=== PATIENT | male | born 1950 | race Caucasian/White ===

== ENCOUNTER 2016-09-13 14:04 | Emergency (ER) | payer MEDICARE ==
[~2016-09-13] VITALS: Ht 182.9 cm; Wt 98.0 kg
[~2016-09-13 14:04] MED LIST: ALLO300T2 PO; ARTHTAB5 PO; BENA40TA PO; COLC1TAB7 PO; CORE25TA PO; DAPT500P IV; LORTA5 PO; PANT20 PO; PRAV40TA2 PO; SSD1CRE TOP; TAMS0.4C67 PO; [UNRECOGNIZED DRUG - OTHER] PO
[2016-09-13 14:10] VITALS: BP 148/90; PULSE 80; RESP 20; TEMP 98; O2SAT 95
[2016-09-13] MEDS ORDERED: LIDOCAINE 1%/EPINEPHrine 1:100,000 SOLN 20 ML VIAL INFIL ONE (15:45)
--- NOTE | 2016-09-13 15:48 | PD ---
HPI Chief Complaint: Laceration/Skin Injury Time Seen by Provider: 15:44 Travel History International Travel<30 days: No Contact w/Intl Traveler<30days: No Traveled to known affect area: No History of Present Illness HPI 65-year-old male presents to the emergency department for evaluation of head injury and laceration to his forehead that occurred at 8 AM this morning. He states he tripped and fell over rug and hit his head on the corner of a door. Patient states he cannot have tetanus immunization due to allergy. Patient also complains of some mild neck pain. He states he hit his right knee, but has no pain and can move it. Patient also has abrasion to the right cheek and tenderness over the right orbit. Patient reports history of sepsis has right leg amputation. He also has history hypertension, hyperlipidemia, chronic pain , neuropathy. Patient states he does not take any anticoagulants and has no bleeding disorders. Patient states he falls often due to prosthesis. 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, Severe, 09/13/16) PATIENT STATES HE CANNOT HAVE ANY MEDS WITH HORSE SERUM PROTEINS Reported Meds & Prescriptions Reported Meds & Active Scripts Active Reported Pravastatin 80 Mg Tab 80 Mg PO DAILY Zanaflex (Tizanidine HCl) 4 Mg Cap 4 Mg PO TID [place] (Hydrocodone-Acetaminophen) 10-325 Mg Tab 1 Tab PO Q6H PRN Flomax (Tamsulosin HCl) 0.4 Mg Cap 0.4 Mg PO HS Gabapentin 300 Mg Cap 600 Mg PO TID Protonix (Pantoprazole Sodium) 20 Mg Tab 20 Mg PO DAILY Colchicine 0.6 Mg Cap 0.6 Mg PO DIRECTED Benazepril (Benazepril HCl) 40 Mg Tab 40 Mg PO DAILY Allopurinol 300 Mg Tab 300 Mg PO DAILY Review of Systems Except as stated in HPI: all other systems reviewed are Neg Physical Exam Narrative GENERAL: Well-developed well-nourished male patient, afebrile. SKIN: Warm and dry. Patient has a 3 cm linear laceration to the right forehead. He also has abrasions to the right cheek. HEAD: Normocephalic. EYES: No scleral icterus. No injection or drainage. PERRLA. ENT: Mucosa pink and moist. No erythema or exudates. No uvular edema. No uvular , palatal, or tonsillar deviation. Airway patent. Nasal turbinates appear normal without nasal blood, purulent drainage or septal hematoma. Bilateral tympanic membranes are clear without erythema or perforation. NECK: Supple, trachea midline. No JVD or lymphadenopathy. CARDIOVASCULAR: Regular rate and rhythm without murmurs, gallops, or rubs. RESPIRATORY: Breath sounds equal bilaterally. No accessory muscle use. Lungs sounds are clear to auscultation. GASTROINTESTINAL: Abdomen soft, non-tender, nondistended. MUSCULOSKELETAL: No cyanosis, or edema. No tenderness to palpation over right knee. He has full flexion-extension of the right knee without pain. BACK: No obvious deformity. No CVA tenderness. Patient has mild tenderness over midline cervical spine. Data Data Last Documented VS Vital Signs Date Time Temp Pulse Resp B/P Pulse Ox O2 Delivery O2 Flow Rate FiO2 09/13/16 14:10 98.0 80 20 148/[address] Brain W/O Iv Contrast(Rout) (09/13/16 ) Ct Cerv Spine W/O Contrast (09/13/16 ) Ct Facial Bones W/O Iv Cont (09/13/16 ) Lidocai-Epi 1%-1:100,000 Inj (Xylocaine- (09/13/16 15:45) MDM Medical Decision Making Medical Screen Exam Complete: Yes Emergency Medical Condition: Yes Medical Record Reviewed: Yes Interpretation(s) Last Impressions Head CT 09/13/16 0000 Signed Impressions: Service Date/Time: Tuesday, September 13, 2016 16:13 - CONCLUSION: 1. No acute intracranial abnormalities. Right maxillary sinusitis. Small scalp laceration right frontal region. Jim Fitzpatrick MD Cervical Spine CT 09/13/16 0000 Signed Impressions: Service Date/Time: Tuesday, September 13, 2016 16:13 - CONCLUSION: 1. No acute bony abnormalities. Moderate degenerative change. Jim Fitzpatrick MD CT facial bones - CONCLUSION: 1. Right frontal scalp laceration. No acute fracture. Right maxillary sinusitis. Differential Diagnosis Laceration versus closed head injury versus intercranial normality versus fracture versus contusion versus cervical strain versus fracture Narrative Course 65-year-old male presents to the emergency room after a trip and fall that occurred at 8 AM. Patient gives verbal consent for laceration repair. CT of the brain, cervical spine, facial bones are ordered and pending. CT of the brain shows no acute intracranial abnormalities. CT of the facial bones shows right frontal scalp laceration, no acute fracture. CT of the cervical spine shows no acute bony abnormalities, moderate degenerative change. I discussed the imaging results with the patient. He'll be discharged a prescription for Keflex due to history of infection. He is instructed on proper wound care. Patient is given first dose of Keflex in the emergency department. He is instructed on symptoms of infection he should immediately return for. The patient verbalizes agreement and understanding. Procedures Procedure Narrative LACERATION LOCATION: Right forehead LENGTH: 3 cm NUMBER OF STITCHES/LASHAWN: 7 simple interrupted sutures REPAIR: The area of the laceration was prepped with Betadine and sterilely draped. The laceration was infiltrated with 1% lidocaine with epinephrine. The wound was copiously irrigated and explored without evidence of foreign body, tendon injury or neurovascular injury. The wound was closed using 5-0 prolene. This was a single layer repair. A sterile dressing was applied. The patient was advised to keep the dressing clean and dry. Patient tolerated the procedure well. Diagnosis Primary Impression: Forehead laceration Qualified Code: S01.81XA - Forehead laceration, initial encounter Additional Impressions: Facial contusion Qualified Code: S00.83XA - Facial contusion, initial encounter Cervical strain Qualified Code: S16.1XXA - Cervical strain, initial encounter Closed head injury Qualified Code: S09.90XA - Closed head injury, initial encounter Referrals: Primary Care Physician Patient Instructions: Care For Your Stitches (ED), General Instructions, Laceration (ED) Additional Instructions: Clean laceration twice daily with soap and water and apply [id number] antibiotic ointment. Keep laceration clean and dry. No swimming or hot tubs. Take antibiotic as instructed until gone. Suture removal in 5 days. You may follow up with your primary care physician or return to the emergency department for this. Return to the emergency department for any acute worsening of symptoms. Med/Other Pt SpecificInfo: Prescription(s) given Scripts Cephalexin (Keflex)500 Mg [id number] Mg PO Q8H 7 Days Ref 0 Prov:Preeti Taylor 09/13/16 Disposition: 01 DISCHARGE HOME Preeti Taylor Sep 13, 2016 15:48
[2016-09-13] MEDS ORDERED: PANT20 PO (15:54)
[2016-09-13] MEDS ORDERED: COLC1CAP3 PO (15:54)
[2016-09-13] MEDS ORDERED: GABA300C5 PO (15:54)
[2016-09-13] MEDS ORDERED: TAMS5CAP PO (15:54)
[2016-09-13] MEDS ORDERED: BENA40TA PO (15:54)
[2016-09-13] MEDS ORDERED: ALLO300T2 PO (15:54)
[2016-09-13] MEDS ORDERED: PRAV80TA2 PO (15:54)
[2016-09-13] MEDS ORDERED: HYDR-3366 PO (15:54)
[2016-09-13] MEDS ORDERED: ZANA4CAP PO (15:54)
--- NOTE | 2016-09-13 17:33 | RADRPT ---
EXAM DATE/TIME: 09/13/2016 16:13 [facility] COMPARISON: No previous studies available for comparison. INDICATIONS : Fall today, laceration to forehead. RADIATION DOSE: 35.33 CTDIvol (mGy) MEDICAL HISTORY : Hypertension. melanoma SURGICAL HISTORY : None. ENCOUNTER: Initial ACUITY: 1 day PAIN SCALE: 5/10 LOCATION: Bilateral frontal head TECHNIQUE: Multiple contiguous axial images were obtained of the head. Using automated exposure control and adj ustment of the mA and/or kV according to patient size, radiation dose was kept as low as reasonably a chievable to obtain optimal diagnostic quality images. FINDINGS: No acute intracranial hemorrhage, mass or shift. No hydrocephalus. No abnormal extra-axial fluid. Rig ht frontal scalp laceration. There is opacification of the right maxillary sinus and mucosal thickening left maxillary sinus. CONCLUSION: 1. No acute intracranial abnormalities. Right maxillary sinusitis. Small scalp laceration right front al region. Jim Fitzpatrick MD on September 13, 2016 at 17:30 Board Certified Radiologist. This report was verified electronically.
--- NOTE | 2016-09-13 17:36 | RADRPT ---
EXAM DATE/TIME: 09/13/2016 16:13 [facility] COMPARISON: No previous studies available for comparison. INDICATIONS : Fall today, laceration to forehead. RADIATION DOSE: 19.44 CTDIvol (mGy) MEDICAL HISTORY : Hypertension. melanoma SURGICAL HISTORY : None. ENCOUNTER: Initial ACUITY: 1 day PAIN SCALE: 0/10 LOCATION: Bilateral neck TECHNIQUE: Volumetric scanning of the cervical spine was performed. Multiplanar reconstructions in the sagittal, coronal and oblique axial planes were performed. Using automated exposure control and adjustment o f the mA and/or kV according to patient size, radiation dose was kept as low as reasonably achievable to obtain optimal diagnostic quality images. FINDINGS: No acute fracture or spondylolisthesis. There is moderate degenerative disc disease and facet arthrop athy. No prevertebral soft tissue swelling. No significant canal stenosis. CONCLUSION: 1. No acute bony abnormalities. Moderate degenerative change. Jim Fitzpatrick MD on September 13, 2016 at 17:32 Board Certified Radiologist. This report was verified electronically.
--- NOTE | 2016-09-13 17:38 | RADRPT ---
EXAM DATE/TIME: 09/13/2016 16:13 [facility] COMPARISON: No previous studies available for comparison. INDICATIONS : Fall today, laceration to forehead. RADIATION DOSE: 62.87 CTDIvol (mGy) MEDICAL HISTORY : Hypertension. melanoma SURGICAL HISTORY : None. ENCOUNTER: Initial ACUITY: 1 day PAIN SCORE: 5/10 LOCATION: Bilateral forehead TECHNIQUE: Volumetric scanning of the facial bones was performed. Using automated exposure control and adjustme nt of the mA and/or kV according to patient size, radiation dose was kept as low as reasonably achiev able to obtain optimal diagnostic quality images. FINDINGS: There is a right frontal scalp laceration. No facial bone fractures. There is near complete opacifica tion right maxillary sinus and mucosal thickening in the left maxillary sinus. Globes are intact. CONCLUSION: 1. Right frontal scalp laceration. No acute fracture. Right maxillary sinusitis. Jim Fitzpatrick MD on September 13, 2016 at 17:35 Board Certified Radiologist. This report was verified electronically.
[2016-09-13] MEDS ORDERED: CEPH-460 PO (17:45)
[2016-09-13] MEDS ORDERED: CEPHALEXIN MONOHYDRATE 500 MG CAP PO ONE (17:45)
== END 2016-09-13 18:07 | disposition home or self-care (01) ==
LOC: NEPB 14:04
DX: S01.81XA Laceration without foreign body of other part of head, initial encounter (principal); S16.1XXA Strain of muscle, fascia and tendon at neck level, initial encounter; W01.0XXA Fall on same level from slipping, tripping and stumbling without subsequent striking against object, initial encounter
CPT/HCPCS: 12013; 70450; 70486; 72125